=== PATIENT | female | born 1995 | race Caucasian/White ===

== ENCOUNTER → 2019-10-08 | Outpatient (CLI) | payer OTHER ==
[~2019-10-08] MED LIST: BACTRIM DS 8001 TAB PO; CEPHALEXIN500 M1 PO; NO HOME MEDICATIONS; NORCO 325 MG-51 TAB PO; PERCOCET 325 MG1 TA2 PO; ZOFRAN4 M1 PO
== END ==
LOC: COL.RAD 12:30
DX: M25.561 Pain in right knee (principal); R60.0 Localized edema

== ENCOUNTER → 2019-12-14 | Outpatient (CLI) | payer OTHER | LOC: COL.RAD 13:40 | DX: M25.561 Pain in right knee (principal) | CPT/HCPCS: J3301; Q9967 ==

== ENCOUNTER → 2020-05-26 | Outpatient (CLI) | payer OTHER | LOC: ZCOL.LAB 18:55 | DX: U07.1 COVID-19 (principal) ==

== ENCOUNTER 2022-05-21 14:07 | Day surgery (SDC) | payer BC ==
[~2022-05-21] VITALS: Ht 172.7 cm; Wt 106.4 kg
[2022-05-21] MEDS ORDERED: ADIPEX-P37.5 M2 PO (14:38)
[2022-05-21] MEDS ORDERED: FORTAMET500 M1 PO (14:39)
[2022-05-21] MEDS ORDERED: BUSPAR5 MG PO (14:39)
[2022-05-21] MEDS ORDERED: XYZAL5 MG PO (14:40)
[2022-05-21] MEDS ORDERED: VENTOLIN0.09 MG IH (14:40)
[2022-05-21 14:54] VITALS: BP 110/75; PULSE 69; TEMP 97.9
[2022-05-21 15:35] VITALS: BP 108/62; PULSE 58
--- NOTE | 2022-05-21 15:35 | NUR ---
Patient returns to [facility] [address] per cart and transfers from cart to recliner and is awake and alert. Temp 97.8. Taking water and eating muffins. IV fluids infusing.
[2022-05-21 15:50] VITALS: BP 106/73; PULSE 64
--- NOTE | 2022-05-21 15:50 | NUR ---
Tolerates snack. Offers no complaints of pain or nausea.
[2022-05-21 16:05] VITALS: BP 109/70; PULSE 75
--- NOTE | 2022-05-21 16:05 | NUR ---
Dr. Perez in the room and talks with the patient. All questions answered.
--- NOTE | 2022-05-21 16:23 | NUR ---
Dismissal instructions given and patient voices understandingn of these. Patient dresses self.
--- NOTE | 2022-05-21 16:30 | NUR ---
Patient dismissed to home driven by friends and taken to the vehicle per wheelchair with instructions in hand.
== END 2022-05-21 16:30 | disposition home or self-care (01) ==
LOC: SDCO 14:07
DX: R19.7 Diarrhea, unspecified (principal); K92.1 Melena; K64.1 Second degree hemorrhoids
CPT/HCPCS: J2704; J7120

== ENCOUNTER 2023-11-22 19:31 | Emergency (ER) | payer BC ==
[~2023-11-22] VITALS: Ht 175.3 cm; Wt 104.5 kg
[~2023-11-22 19:31] MED LIST changes: +ADIPEX-P37.5 M2 PO; +BUSPAR5 MG PO; +FORTAMET500 M1 PO; +VENTOLIN0.09 MG IH; +XYZAL5 MG PO
[2023-11-22 19:39] VITALS: BP 127/78; TEMP 102.2
[2023-11-22] MEDS ORDERED: ZOFRAN ODT4 MG PO (20:17)
[2023-11-22] MEDS ORDERED: TAMIFLU 75MG75 MG PO (20:17)
[2023-11-22 20:22] VITALS: PULSE 110
== END 2023-11-22 20:22 | disposition home or self-care (01) ==
LOC: COL.ER 19:31
DX: J10.1 Influenza due to other identified influenza virus with other respiratory manifestations (principal); R00.0 Tachycardia, unspecified